=== PATIENT | female | born 1950 | race Caucasian/White ===

== ENCOUNTER 2021-02-26 08:56 | Day surgery (SDC) | payer BC, SELFPAY ==
[2021-02-19 11:38] VITALS: BMI 29.0
[2021-02-26 09:05] VITALS: BP 136/49; PULSE 74; RESP 17; TEMP 36.8; O2SAT 98
--- NOTE | 2021-02-26 09:19 | HO.ANESPROP2 ---
HPI - Anesthesia Eval Consult details Narrative: 70 yo female patient for EGD with balloon dilatation, Colonoscopy PMFSH Past Medical History Medical History (Updated 02/19/21 @ 11:44 by Marni Mendenhall RN) COVID-19 vaccine series completed Dysphagia GERD (gastroesophageal reflux disease) Hypothyroidism Pulmonary scarring Raynauds disease Scleroderma Surgical History Surgical History (Updated 02/19/21 @ 11:36 by Marni Mendenhall RN) History of laparoscopy History of total abdominal hysterectomy Hx of colonoscopy Hx of dilation and curettage Hx of esophagogastroduodenoscopy Hx of unilateral oophorectomy Social History Social History Household Members Other:: Daughter Are you a primary director of health care marketing to a significant other at home: No Do you presently have visiting nurse or other home services: No Patient Tobacco Use Status: Never used Tobacco Use of substances other than those prescribed or required for medical reasons: No Have you been hit, kicked, punched, or otherwise hurt by someone within the past year? If so, by whom?: No Are you DNR?: No Advance Directives: No Advance Directives Information Provided: No Advance Directives on File: No Recently lost weight without trying: No Eating poorly because of decreased appetite: No Nutrition Risks: No Nutritional Risk and Difficulty swallowing Patient : No Meds Allergies Allergy/AdvReac Type Severity Reaction Status Date / Time No Known Allergies Allergy Verified 02/19/21 11:36 Active Medications: Current Medications Sodium Biphosphate/Sodium Phosphate (Sodium Phosphate,Rooks-Dibasic 133 Ml Enema) 133 ml [place] ONCE PRN PRN Reason: Poor Colonoscopy Prep Results Home Medications Medication Instructions Recorded Confirmed Last Taken Type levothyroxine 100 mcg tablet 100 mcg PO DAILY 02/19/21 02/19/21 Unknown History omeprazole 20 mg capsule,delayed 20 mg PO DAILY 02/19/21 02/19/21 Unknown History release Exam Exam Date and Time: February 26, [id number] Height,Weight and Vital Signs: Height 5 ft 6 in Weight 81.647 kg
[2021-02-26] MEDS: Lactated Ringers 1,000 ML 100 ML IVCONT (09:32)
[2021-02-26 11:35] VITALS: BP 116/46; PULSE 72; RESP 12; TEMP 36.5; O2SAT 100
--- NOTE | 2021-02-26 11:39 | PM.OP ---
Brief Operative Note Date of Service: 02/26/21 Pre-op diagnosis: GERD, Dysphagia, Screening Post-op diagnosis: other (Esophageal stricture, Hiatal hernia, Colon polyps) Procedure: EGD with Balloon dilation, Colonoscopy to the cecum and TI with cold snare polypectomy of AC polyps and bx/removal of polyps Surgeon: Yan Nielson Anesthesia: MAC Was an Organ Pipe Voicer used for this Procedure?: No Estimated blood loss (mL): 4.0 Pathology: other (A. Polyp at 40cm B. Cecal polyp C. Ascending colon polyps) Condition: stable Disposition: PACU
[2021-02-26 11:50] VITALS: BP 108/54; PULSE 66; RESP 18; TEMP 36.2; O2SAT 100
--- NOTE | 2021-02-26 15:10 | OP_ITS ---
SURGEON: Yan Nielson MD INDICATIONS: The patient presents for evaluation of gastroesophageal reflux, dysphagia, personal history of colon polyps, and colorectal cancer screening. Full consent has been obtained from her for both procedures, including risks of bleeding and perforation. PREOPERATIVE DIAGNOSIS: POSTOPERATIVE DIAGNOSIS: PROCEDURE PERFORMED: Esophagogastroduodenoscopy with balloon dilation of esophageal stricture and colonoscopy to the cecum and terminal ileum with cold snare polypectomy and biopsy and removal of polyps. ESTIMATED BLOOD LOSS: COMPLICATIONS: ANESTHESIA: Monitored anesthesia care. ASSISTANTS: SPECIMENS: PREOPERATIVE DIAGNOSES: Dysphagia, gastroesophageal reflux, history of tubular adenoma of the colon, and colorectal cancer screening. POSTOPERATIVE DIAGNOSES: Dysphagia, gastroesophageal reflux, history of tubular adenoma of the colon, and colorectal cancer screening, hiatal hernia, esophageal stricture, colon polyps, diverticulosis and internal hemorrhoids. DESCRIPTION OF PROCEDURE: The patient was placed in the left lateral decubitus position. The Olympus video gastroscope was passed in the posterior oropharynx and upper esophagus under direct vision. The scope was passed slowly into the distal esophagus. The gastroesophageal junction was seen at 30 cm. There was no evidence of any esophagitis nor Carbajal's esophagus. There appeared to be a mild fibrotic stricture right at the gastroesophageal junction, but without any ulceration nor mass. The scope easily passed this into a moderate sized hiatal hernia. The hiatal hernia mucosa appeared normal. The scope was advanced to pylorus and duodenum was cannulated to the descending portion. The duodenum including the bulb appeared normal without mass or ulceration. The scope was withdrawn back into the stomach. The gastric antrum and body appeared normal with good peristalsis. The scope was retroflexed visualizing the proximal stomach carefully, which appeared normal, without any sign of mass or ulceration. The scope was straightened and withdrawn back in the esophagus. Given her intermittent dysphagia and the findings of the mild stricture, I did use a [employer] incremental balloon to dilate the stricture from 18 mm to 19 mm at the recommended pressures for between 30 and 60 seconds each. Post dilation, there was heme noted and disruption of the stricture. The esophageal mucosa otherwise appeared normal. The scope was withdrawn from the patient. She was turned around for the colonoscopy. The digital rectal exam revealed no abnormalities. The Olympus video pediatric colonoscope was entered into the rectum and advanced to the cecum. Once in the cecum, I did identify cecal pouch with appendiceal orifice and a normal-appearing ileocecal valve. The terminal ileum was cannulated and appeared normal. The scope was withdrawn back in the colon. There was transillumination of light deep in the right lower quadrant. In the cecum, was a 3 mm polyp, which was biopsied and completely removed with cold biopsy forceps. The scope was then slowly withdrawn assessing all mucosal surfaces carefully. Preparation was excellent. In the ascending colon, were several approximately 4 or 5 mm polyps in the same area, which were all removed by cold snare polypectomy and recovered by suction. There was no sign of any residual polyp nor significant bleeding. At 40 cm, was an approximately 3 or 4 mm polyp, which was biopsied and completely removed with cold biopsy forceps. I did not visualize any other polyps, colitis, nor angiodysplasia. There was a mild amount of sigmoid diverticulosis. In the rectum, scope was retroflexed visualizing internal hemorrhoids, but no other pathology. The rectal mucosa appeared normal. The scope was straightened out and withdrawn from the patient. She tolerated both procedures well and was returned to the recovery area in stable condition. IMPRESSION: 1. Mild distal esophageal stricture, status post balloon dilation. 2. Moderate-sized hiatal hernia. 3. Small colon polyps, status post cold snare polypectomy and biopsy and removal. 4. Diverticulosis. 5. Internal hemorrhoids. PLAN: The results of biopsy will be checked. I would recommend a repeat colonoscopy in 5 years. She will continue her daily Prilosec as she does report that is working well for her in regard to the reflux and helping to resolve her dysphagia as well. She was advised not to use any aspirin and NSAIDs for 1 week. If things are stable, she will see me on a p.r.n. basis. MD NIDIA Ness/ROSS / [id number]
== END 2021-02-26 12:30 | disposition home or self-care (01) ==
PROVIDERS: PCP Internal Medicine; Visit Provider Internal Medicine
PROC: (CPT 45385; principal; 2021-02-26 11:20)
PROC: 0DJD8ZZ Inspection of Lower Intestinal Tract, Via Natural or Artificial Opening Endoscopic (ICD-10-PCS; CPT 45378; 2021-02-26 11:20)
DX: Z12.11 Encounter for screening for malignant neoplasm of colon (principal); Z86.010 Personal history of colon polyps; D12.0 Benign neoplasm of cecum; D12.2 Benign neoplasm of ascending colon; K63.5 Polyp of colon; K57.30 Diverticulosis of large intestine without perforation or abscess without bleeding; K64.8 Other hemorrhoids; K22.2 Esophageal obstruction; R13.19 Other dysphagia; K21.9 Gastro-esophageal reflux disease without esophagitis; K44.9 Diaphragmatic hernia without obstruction or gangrene; I73.00 Raynaud's syndrome without gangrene; E03.9 Hypothyroidism, unspecified; Z79.899 Other long term (current) drug therapy
CPT/HCPCS: 45385; 45380; 43249; 88305; C1726

== ENCOUNTER 2021-03-30 10:42 | Outpatient (REF) | payer BC, SELFPAY ==
[2021-03-30 10:46] LABS: MANUAL DIFF FLAG NO
[2021-03-30 11:28] LABS: Appearance Urine CLEAR; Color Urine YELLOW; Glucose Urine UA NEG (NEG); Leukocyte Esterase Urine NEG (NEG); Nitrite Urine NEG (NEG); PH 5.5 (5.0-8.0); Specific Gravity - Urine 1.025 (1.005-1.025); Urine Blood NEG (NEG); Urine Ketones NEG (NEG); Urine Protein NEG (NEG-TRACE)
[2021-03-30 11:38] LABS: Basophils Percent Auto 0.4 % (0-2); Eosinophils Absolute Auto 0.2 X10*3/uL (0.0-0.4); Eosinophils Percent Auto 3.2 % (0-4); Hematocrit 40.7 % (37.0-47.0); Hemoglobin 12.9 g/dl (12.0-16.0); Imm Gran Abs Auto 0.01 X10*3/uL (0.00-0.03); Imm Gran Pct Auto 0.2 % (0.0-0.4); Lymphocytes Absolute Auto 2.1 X10*3/uL (1.2-4.9); Lymphocytes Percent Auto 40.2 % (20-40); Mean Corpuscular HGB Conc 31.7 g/dl (31.0-35.0); Mean Corpuscular Hemoglobin 28.7 pg (27.0-33.0); Mean Corpuscular Volume 90.4 fL (80.0-98.0); Mean Platelet Volume 9.9 fL (9.4-12.3); Monocytes Absolute Auto 0.5 X10*3/uL (0.1-1.2); Monocytes Percent Auto 9.8 % (2-11); Neutrophils Absolute Auto 2.4 x10*3/uL (2.0-8.3); Neutrophils Percent Auto 46.2 % (45-73); Platelet Count 278 X10*3/uL (160-400); White Blood Count 5.3 X10*3/uL (4.8-10.8)
[2021-03-30 12:18] LABS: Alanine Aminotransferase 11 U/L (0-31); Albumin Level 3.6 g/dL (3.5-5.0); Alkaline Phosphatase 82 U/L (39-117); Anion Gap 13 (12-20); Aspartate Amino Transferase 17 U/L (5-31); Bilirubin Total 0.4 mg/dL (0.0-1.0); Blood Urea Nitrogen 18 mg/dL (9-16); Calcium 9.2 mg/dL (8.4-10.2); Carbon Dioxide 26 mmol/L (22-29); Chloride 105 mmol/L (96-108); Cholesterol 226 mg/dL; Estimated Glomerular Filt Rate 56; Glucose Fasting 103 mg/dL (60-99); HDL Cholesterol 66 mg/dL; LDL Cholesterol Calculated 147 mg/dl; Potassium 4.8 mmol/L (3.3-5.1); Sodium 139 mmol/L (135-145); TSH reflex Free T4 0.95 uIU/mL (0.32-4.0); Total Protein 6.8 g/dL (6.5-8.0); Triglycerides 69 mg/dL; Vitamin D 25-OH Total 21.7 ng/mL (>30)
== END 2021-03-30 10:43 | disposition home or self-care (01) ==
LOC: HO.LNP 10:42
PROVIDERS: PCP Internal Medicine; Visit Provider Internal Medicine
DX: Z00.00 Encounter for general adult medical examination without abnormal findings (principal); M34.9 Systemic sclerosis, unspecified; E03.9 Hypothyroidism, unspecified; E55.9 Vitamin D deficiency, unspecified
CPT/HCPCS: 80053; 80061; 81003; 82306; 84443; 85025

== ENCOUNTER 2022-04-14 10:28 | Outpatient (REF) | payer MEDICARE, SELFPAY ==
[2022-04-14 10:32] LABS: MANUAL DIFF FLAG NO
[2022-04-14 10:44] LABS: Basophils Percent Auto 0.6 % (0-2); Eosinophils Absolute Auto 0.1 X10*3/uL (0.0-0.4); Eosinophils Percent Auto 2.4 % (0-4); Hematocrit 40.2 % (37.0-47.0); Hemoglobin 12.8 g/dl (12.0-16.0); Imm Gran Abs Auto 0.02 X10*3/uL (0.00-0.03); Imm Gran Pct Auto 0.4 % (0.0-0.4); Lymphocytes Percent Auto 36.8 % (20-40); Mean Corpuscular HGB Conc 31.8 g/dl (31.0-35.0); Mean Corpuscular Hemoglobin 28.9 pg (27.0-33.0); Mean Corpuscular Volume 90.7 fL (80.0-98.0); Mean Platelet Volume 10.2 fL (9.4-12.3); Monocytes Absolute Auto 0.6 X10*3/uL (0.1-1.2); Monocytes Percent Auto 11.3 % (2-11); Neutrophils Absolute Auto 2.6 x10*3/uL (2.0-8.3); Neutrophils Percent Auto 48.5 % (45-73); Platelet Count 308 X10*3/uL (160-400); Red Blood Count 4.43 X10*6/uL (4.20-5.50); Red Cell Distribution Width 15.4 % (11.0-16.0); White Blood Count 5.3 X10*3/uL (4.8-10.8)
[2022-04-14 10:59] LABS: Appearance Urine Cloudy; Color Urine Yellow; Glucose Urine UA Negative (Negative); Leukocyte Esterase Urine Small (1+) (Negative); Nitrite Urine Negative (Negative); PH 5.5 (5.0-9.0); Specific Gravity - Urine 1.025 (1.005-1.025); UMIC TRIGGER UA YES; Urine Blood Negative (Negative); Urine Ketones Trace mg/dL (Negative); Urine Protein Negative (Neg-Trace)
[2022-04-14 11:01] LABS: Alanine Aminotransferase 7 U/L (0-31); Albumin Level 3.6 g/dL (3.5-5.0); Alkaline Phosphatase 85 U/L (39-117); Anion Gap 10 (12-20); Aspartate Amino Transferase 18 U/L (5-31); Bilirubin Total 0.4 mg/dL (0.0-1.0); Blood Urea Nitrogen 13 mg/dL (9-16); Calcium 8.9 mg/dL (8.4-10.2); Carbon Dioxide 28 mmol/L (22-29); Chloride 106 mmol/L (96-108); Cholesterol 224 mg/dL; Estimated Glomerular Filt Rate > 60; Glucose Fasting 102 mg/dL (60-99); HDL Cholesterol 64 mg/dL; LDL Cholesterol Calculated 142 mg/dl; Potassium 4.3 mmol/L (3.3-5.1); Sodium 140 mmol/L (135-145); Total Protein 6.7 g/dL (6.5-8.0); Triglycerides 90 mg/dL
[2022-04-14 11:10] LABS: Bacteria Urine None Seen (None Seen); Hyaline Casts Urine 0-2 /LPF (0-2); RBC Urine 0-2 /HPF (0-2)
[2022-04-14 11:23] LABS: TSH reflex Free T4 0.35 uIU/mL (0.32-4.0); Vitamin D 25-OH Total 31.8 ng/mL (>30)
== END 2022-04-14 10:29 | disposition home or self-care (01) ==
LOC: HO.LNP 10:28
PROVIDERS: PCP Internal Medicine; Visit Provider Internal Medicine
DX: Z00.00 Encounter for general adult medical examination without abnormal findings (principal); E03.9 Hypothyroidism, unspecified; E55.9 Vitamin D deficiency, unspecified; M43.9 Deforming dorsopathy, unspecified
CPT/HCPCS: 80053; 80061; 81001; 82306; 84443; 85025

== ENCOUNTER 2022-10-24 15:57 | Outpatient (REF) | payer MEDICARE, SELFPAY ==
[2022-10-24 18:36] LABS: TSH reflex Free T4 0.23 uIU/mL (0.32-4.0)
[2022-10-24 19:07] LABS: Free T4 (Free Thyroxine) 1.31 ng/dL (0.71-1.85)
== END 2022-10-24 15:58 | disposition home or self-care (01) ==
LOC: HO.LNP 15:57
PROVIDERS: Visit Provider Internal Medicine
DX: E03.9 Hypothyroidism, unspecified (principal)
CPT/HCPCS: 84439; 84443

== ENCOUNTER 2022-10-27 09:33 | Outpatient (REF) | payer MEDICARE, SELFPAY ==
--- NOTE | ~2022-10-27 | MM_ITS ---
EXAMINATION: BONE DENSITOMETRY CLINICAL INDICATION: Other specified disorders of bone density and structure. COMPARISON: This is the patient's baseline examination. TECHNIQUE: Using a [employer] DXA System (software version: 13.1) manufactured by [employer], dual-energy x-ray absorptiometry was performed of the lumbar spine and left hip. The images are of good technical quality. Summary results are attached. FINDINGS: LEFT FEMUR, NECK: BMD 0.925 g/cm2, Z-score 0.4, T-score -0.8, normal. LEFT FEMUR, TOTAL: BMD 1.016 g/cm2, Z-score 1.0, T-score 0.1, normal. AP SPINE L1-L4: BMD 0.906 g/cm2, Z-score -1.5, T-score -2.3, osteopenia. IDENTIFIED RISK FACTORS: Menopause, bilateral oophorectomy, height loss, low calcium intake, history of fracture (adult). HISTORY OF FRACTURE: Other. MEDICATIONS: Vitamin D. MM/XR DEXA axial skeleton IMPRESSION: 1. DIAGNOSIS: Osteopenia based on the lowest T-score value of -2.3 in the lumbar spine applying World Health Organization criteria. 2. 10-YEAR FRACTURE RISK PREDICTION, FRAX: Major osteoporotic fracture (clinical spine, forearm, hip or shoulder) 13.3%. Hip fracture 1.3%. 3. Treatment Recommendations: NOF guidelines recommend consideration for treatment in postmenopausal women and men age 50 and older presenting with the following: -A hip or vertebral (clinical or morphometric) fracture. -T-score less than or equal to -2.5 at the femoral neck or spine after appropriate evaluation to exclude secondary causes. -Low bone mass at the hip or spine and a 10-year fracture probability by FRAX of greater than or equal to 3% for hip fracture or greater than or equal to 20% for major osteoporotic fracture based on the [place] adapted WHO algorithm. 4. Other Recommendations: All treatment decisions require clinical judgment and consideration of individual patient factors, including patient preferences, comorbidities, previous drug use, risk factors not captured in the FRAX model (e.g. frailty, falls, vitamin D deficiency, increased bone turnover, interval significant decline in bone density) and possible under or overestimation of fracture risk by FRAX. Additional medical evaluation for secondary cause of low bone mineral density may be appropriate. FUTURE SCAN RECOMMENDATION: People with diagnosed cases of osteoporosis or at high risk for fracture should have regular bone mineral density tests. For patients eligible for Medicare, routine testing is allowed once every 2 years. The testing frequency can be increased to one year for patients who have rapidly progressing disease, those who are receiving or discontinuing medical therapy to restore bone mass, or have additional risk factors.
== END 2022-10-27 09:34 | disposition home or self-care (01) ==
LOC: HO.MAMMO 09:33
PROVIDERS: PCP Internal Medicine; Visit Provider Internal Medicine
DX: Z13.820 Encounter for screening for osteoporosis (principal); Z78.0 Asymptomatic menopausal state; M85.80 Other specified disorders of bone density and structure, unspecified site
CPT/HCPCS: 77080

== ENCOUNTER 2023-01-20 10:56 | Outpatient (REF) | payer MEDICARE, SELFPAY | END 2023-01-20 10:57 | disposition home or self-care (01) | LOC: HO.LNP 10:56 | PROVIDERS: Visit Provider Internal Medicine | DX: E03.9 Hypothyroidism, unspecified (principal) | CPT/HCPCS: 84443 ==

== ENCOUNTER 2023-04-20 11:41 | Outpatient (REF) | payer MEDICARE, SELFPAY | END 2023-04-20 11:42 | disposition home or self-care (01) | LOC: HO.LNP 11:41 | PROVIDERS: Visit Provider Internal Medicine | DX: Z00.00 Encounter for general adult medical examination without abnormal findings (principal); E03.9 Hypothyroidism, unspecified; E55.9 Vitamin D deficiency, unspecified | CPT/HCPCS: 80053; 80061; 81001; 82306; 84443; 85025; 87086 ==

== ENCOUNTER 2023-04-27 15:48 | Outpatient (REF) | payer MEDICARE, SELFPAY ==
[2023-04-27 16:00] LABS: Appearance Urine Clear; Color Urine Yellow; Glucose Urine UA Negative (Negative); Leukocyte Esterase Urine Negative (Negative); Nitrite Urine Negative (Negative); PH 5.5 (5.0-9.0); Specific Gravity - Urine 1.025 (1.005-1.025); Urine Blood Negative (Negative); Urine Ketones Negative (Negative); Urine Protein Negative (Neg-Trace)
[2023-04-27 16:07] LABS: Bacteria Urine None Seen (None Seen); Hyaline Casts Urine 0-2 /LPF (0-2); RBC Urine 0-2 /HPF (0-2); Squamous Epithelial Cell Urine 0-2 /HPF (0-2); WBC Urine 0-5 /HPF (0-5)
== END 2023-04-27 15:49 | disposition home or self-care (01) ==
LOC: HO.LNP 15:48
PROVIDERS: Visit Provider Internal Medicine
DX: R31.29 Other microscopic hematuria (principal)
CPT/HCPCS: 81001

== ENCOUNTER 2024-04-22 10:39 | Outpatient (REF) | payer MEDICARE, SELFPAY ==
[2024-04-22 10:44] LABS: MANUAL DIFF FLAG NO
--- OUTSIDE RECORDS SUMMARY | 2024-04-22 11:53 | XMS_ITS ---
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
--- OUTSIDE RECORDS SUMMARY | 2024-04-22 11:53 | XMS_ITS ---
Author Organization Jason Jenkins MD Address [address] [place] [phone] Care Team Providers Care Tire Installer Name Role Phone Jason Jenkins Primary Care Provider [phone] REASON FOR VISIT HDF IMMUNIZATIONS Vaccine Route Administration Date Status Comme nts Influenza High Dose IM Intramuscular 02/08/2024 Administer ed Encounters Encounter Location Date Provider Diagnosis Jason Jenkins MD [address] [place] [phone] 02/08/2024 Jason Jenkins Encounter for administration of vaccine Z23 ASSESSMENTS Encounter Date Diagnosis Assessment Notes Treatment Notes Treatment Clinical Notes 02/08/2024 Encounter for administration of vaccine (ICD-10 - Z23) PLAN OF TREATMENT Next Appt Details Provider Name:Jason benson, 04/29/2024 02:30:00 PM, [address], [address] [place] [address], [phone],
--- OUTSIDE RECORDS SUMMARY | 2024-04-22 11:53 | XMS_ITS | Patient Health Record ---
Author Organization Jason Jenkins MD Address [address] [place], [place] [id number] Care Team Providers Care Manager Of Manufacturing Name Role Phone Jason Jenkins Primary Care Provider ALLERGIES No Known Allergies RESULTS Component Value Reference Range Notes Urinalysis and Microscopic Reviewed date:04/28/2023 08:41:33 AM Interpretation: Performing Lab:[facility], [address] [place] [id number] Notes/Report: Color Urine Yellow Appearance Urine Clear PH 5.5 5.0-9.0 Glucose Urine UA Negative Negative mg/dL Urine Blood Negative Negative Specific [place] - Urine 1.025 1.005-1.025 Urine Protein Negative Neg-Trace mg/dL Urine Ketones Negative Negative mg/dL Nitrite Urine Negative Negative Leukocyte Esterase Urine Negative Negative RBC Urine 0-2 0-2 /HPF WBC Urine 0-5 0-5 /HPF Squamous Epithelial Cell Urine 0-2 0-2 /HPF Bacteria Urine None Seen None Seen Hyaline Casts Urine 0-2 0-2 /LPF MAMMOGRAM DIGITAL BILATERAL SCREEN Reviewed date:01/11/2024 11:53:37 AM Interpretation:Negative Performing Lab: Notes/Report: Negative REASON FOR REFERRAL No Information MEDICATIONS Medication SIG (Take, Route, Frequency, Duration) Notes Start Date End Date Status Omeprazole 20 MG 1 capsule Orally Onc e a day for 90 days Active Levothyroxine Sodium 88 MCG TAKE 1 TABLET BY MOUTH EVERY DAY IN THE MORNING ON EMPTY STOMACH for 90 Active predniSONE 10 MG 1 tablet with food o r milk Orally 4 tabs for 3 days,3tabs for 3 days, 2 tabs for 3 days, and 1 tab for 3 days for 14 days 01/16/2024 Active Vitamin D3 25 MCG (1000 UT) 1 tablet Orally Once a day 04/19/2021 Not-Taking Vitamin B12 1000 MCG 1 tablet Orally Onc e a day for 30 day(s) Not-Taking ProAir RespiClick 108 (90 Base) MCG/ACT 1 puff as needed Inhalation every 4 hrs 01/04/2016 Not-[place] g Diprolene AF 0.05 % 1 application to affected area Externally Once a day for 30 days 05/31/2012 Not-Taking IMMUNIZATIONS Vaccine Route Administration Date Status Comme nts Flu Vaccine IM Intramuscular 01/11/2011 Administered Flu Vaccine IM Intramuscular 04/26/2012 Administered TDaP IM Intramuscular 09/17/2012 Administered Shingles IM Intramuscular 09/29/2014 Administered Fluarix Quadrivalent IM Intramuscular 01/12/2015 Administe red Fluarix Quadrivalent IM Intramuscular 02/23/2016 Administe red PPSV23 (Pnemovax) IM Intramuscular 04/25/2016 Administered Fluarix Quadrivalent IM Intramuscular 02/20/2017 Administe red Influenza High Dose IM Intramuscular 01/25/2018 Administer ed Shingrix IM Intramuscular 01/30/2018 Administered Shingrix IM Intramuscular 04/30/2018 Administered Prevnar 13 IM Intramuscular 05/14/2018 Administered Influenza High Dose IM Intramuscular 03/11/2019 Administer ed Fluarix Quadrivalent IM Intramuscular 01/16/2020 Administe red Covid Vaccine Unknown 06/17/2020 Administered Moderna C VS Covid Vaccine Unknown 07/15/2020 Administered Moderna c vs Influenza High Dose Unknown 01/25/2021 Administered SARS-COV-2 Moderna Unknown 02/11/2021 Administered PPSV23 (Pnemovax) IM Intramuscular 11/01/2021 Administered Influenza High Dose IM Intramuscular 02/08/2024 Administer ed SOCIAL HISTORY Tobacco Use: Social History Observation Description Date Details (start date - stop date) Never Smoker NA - NA Sex Assigned At : Social History Observation Description Sex Assigned At Unknown Tobacco Use/Smoking Question Answer Notes Patient is a nonsmoker Additional Findings: Tobacco Non-User Cu rrent non-smoker, currently using no form of tobacco Alcohol Screen Question Answer Notes Did you have a drink containing alcohol in the p ast year? No Points 0 Interpretation Negative PROBLEMS Problem Type ICD Code Onset Dates Problem Status W/U Status Risk SNOMED Code Notes Problem Reflux esophagitis (K21.00) Active confirmed 617951965 Problem Vitamin D deficiency (E55.9) Active confirmed Vitamin D deficiency (82104077) Problem Acquired hypothyroidism (E03.9) Active confirmed 503118365 Problem Non morbid obesity due to excess calories (E66.09) Active confirmed 452709445 Problem History of colonic polyps (Z86.010) Active confirmed 330992566 Problem Scleroderma (M34.9) Active confirmed Scleroderma (272688931) Problem Systemic scleroses (M34.9) Active confirmed 63030904 Problem Body mass index (BMI) of 33.0-33.9 in adult (Z68.33) Active confirmed 038295844 Problem Osteopenia determined by x-ray (M85.80) Active confirmed 413445512 VITAL SIGNS Blood pressure diastolic 56 mm Hg 01/16/2024 thai ght is down 9 pounds since 10-31-23 Height 66 in 01/16/2024 weight is down 9 pounds since 10-31-23 Blood pressure systolic 110 mm Hg 01/16/2024 weig ht is down 9 pounds since 10-31-23 Weight 191 lbs 01/16/2024 weight is down 9 pounds since 10-31-23 BMI 30.82 kg/m2 01/16/2024 weight is down 9 pounds since 10-31-23 Encounters Encounter Location Date Provider Diagnosis Jason Jenkins MD [address] [place] [id number] 04/27/2023 Jason Jenkins Microscopic hematuri a R31.29 ; Annual physical exam Z00.00 ; Reflux esophagitis K21.00 ; Acquired hypothyroidism E03.9 and Depression screening Z13.31 Jason Jenkins MD [address] [place] [address] [address] [place] [id number] 02/08/2024 Jason Jenkins MD [address] [place] [id number] 04/22/2024 Jason Jenkins Blood tests for routine general physical examination Z00.00 ; Acquired hypothyroidism E03.9 and Vitamin D deficiency E55.9 Jason Jenkins MD [address] [place] [id number] 02/08/2024 Jason Jenkins Encounter for administration of vaccine Z23 Jason Jenkins MD [address] [place] [id number] 10/31/2023 Jason Jenkins Osteopenia determine d by x-ray M85.80 ; Scleroderma M34.9 ; Abnormal plasma protein test R77.9 ; Weight loss R63.4 and Acquired hypothyroidism E03.9 Jason Jenkins MD [address] [place] [id number] 01/16/2024 Jason Jenkins COVID-19 U07.1 and Dysfunction of left eustachian tube H69.92 ASSESSMENTS Encounter Date Diagnosis Assessment Notes Treatment Notes Treatment Clinical Notes 04/27/2023 Annual physical exam (ICD-10 - Z00.00) labs reviewed nd discussed with patient 04/27/2023 Microscopic hematuria (ICD-10 - R31.29) will continue to monitor 04/22/2024 Blood tests for routine general physical examination (ICD-10 - Z00.00) 02/08/2024 Encounter for administration of vaccine (ICD-10 - Z23) 10/31/2023 Scleroderma (ICD-10 - M34.9) not having any problems 10/31/2023 Osteopenia determined by x-ray (ICD-10 - M85.80) followed by endocrine 01/16/2024 COVID-19 (ICD-10 - U07.1) 01/16/2024 Dysfunction of left eustachian tube (ICD-10 - H69.92) patient verbalized understanding of medication and directions for use. 04/27/2023 Reflux esophagitis (ICD-10 - K21.00) stable, will continue current regiment 04/22/2024 Acquired hypothyroidism (ICD-10 - E03.9) 10/31/2023 Abnormal plasma protein test (ICD-10 - R77.9) need notes from dr herrera at [facility]/ request will be sent for records 04/27/2023 Acquired hypothyroidism (ICD-10 - E03.9) stable, will continue current regiment 04/22/2024 Vitamin D deficiency (ICD-10 - E55.9) 10/31/2023 Weight loss (ICD-10 - R63.4) has lost 13 pounds since august on ww. 04/27/2023 Depression screening (ICD-10 - Z13.31) negative screen 10/31/2023 Acquired hypothyroidism (ICD-10 - E03.9) stable, will continue current regiment PLAN OF TREATMENT Pending Test Test Name Order Date Electrocardiogram (EKG) 07/02/2013 Electrocardiogram (EKG) 02/23/2017 MAMMOGRAM DIGITAL BILATERAL SCREEN 03/19 US LEG LT VENOUS DOPPLER 11/01/2021 PFT 02/22/2016 Complete Blood Count Auto Diff 5 Comprehensive [place]. Panel Fast 5 Lipid Panel 04/22/2024 Vitamin D 25-OH Total 04/22/2024 MM tomosynthesis screening BI 09/22/2020 XR DEXA axial skeleton 09/22/2020 XR DEXA axial skeleton 11/17/2020 UA ClnCatch+Micro w/rflx Cult 04/22/2024 Future Test Test Name Order Date BONE DENSITY DEXA 10/03/2019 Next Appt Details Provider Name:Jason Saravia ier, 04/29/2024 02:30:00 PM, [address] [place] [address], [address], [place], [place], [id number], Insurance Providers Payer Name Payer Address Payer Phone Subscriber Number Group Number Insured Name Patient Relationship to Insured Coverage Start Date Coverage End Date [employer] [address] [place], [place] [id number] Loni Diamond Self - patient is the insured MEDICAL (GENERAL) HISTORY Medical History History ICD Code colonoscopy 2009 due in 5 ye ars; colonoscopy 08/14/15 w/Dr. Nielson - repeat 5 years: colonoscopy 03/07, repeat 5 years ( 2025) UIP IS USUAL INTERSTITIAL PNEUMONIA
--- OUTSIDE RECORDS SUMMARY | 2024-04-22 11:53 | XMS_ITS | Patient Health Record ---
Author Organization [facility] Address [address] [place] [id number] Care Team Providers Care Sports Analyst Name Role Phone Jason Jenkins MD Primary Care Provider Yan Woodard Unavailable [phone] ALLERGIES No Known Allergies REASON FOR REFERRAL No Information MEDICATIONS Medication SIG (Take, Route, Frequency, Duration) Notes Start Date End Date Status PriLOSEC 20 MG 1 capsule Orally Onc e a day PRN Active Levothyroxine Sodium 100 MCG 1 capsule O rally Once a day Active IMMUNIZATIONS Vaccine Route Administration Date Status Comme nts Influenza Unknown 01/16/2020 Administered SOCIAL HISTORY Sex Assigned At : Social History Observation Description Sex Assigned At Unknown PROBLEMS Problem Type ICD Code Onset Dates Problem Status W/U Status Risk SNOMED Code Notes Problem Gastroesophageal reflux disease without esophagitis (K21.9) Active confirmed 104361598 Problem History of adenomatous polyp of colon (Z86.010) Active confirmed 238554329 Problem Encounter for screening for malignant neoplasm of colon (Z12.11) Active confirmed 678571334 Problem Personal history of colonic polyps (Z86.010) Active confirmed History of poly p of colon (situation) (469058130) Problem Gastroesophageal reflux disease with esophagitis without hemorrhage (K21.00) Active confirmed 525196579 Problem Esophageal dysphagia (R13.19) Active confirmed 06580769 Problem Diverticulosis of colon (K57.30) Active confirmed Diverticulosi s of colon (133285667) Problem Esophageal stricture (K22.2) Active confirmed Esophageal stricture (60069319) Problem Gastroesophageal reflux disease (K21.9) Active confirmed Gastroesophagea l reflux disease (828634960) PLAN OF TREATMENT Future Test Test Name Order Date COLONOSCOPY 05/27/2015 UPPER GI ENDOSCOPY [place] DILATION OF ESOPH 01/21/2021 COLONOSCOPY 01/21/2021 Insurance Providers Payer Name Payer Address Payer Phone Subscriber Number Group Number Insured Name Patient Relationship to Insured Coverage Start Date Coverage End Date [facility] [address] [place], [place] [id number] PALAK HUNTER Self - patient is the insured MEDICAL (GENERAL) HISTORY Medical History History ICD Code GERD-reflux esophagitis--upp er endoscopy in 2009 revealed a moderate size hiatal hernia and some erosive esophagitis--biopsies were negative for Carbajal's esophagus Tubular adenomas removed in 2003 and 2009--also noted was some diverticulosis and internal hemorrhoids Scleroderma diagnosed in 1985--Raynaud's Denies NH,DM,CVA,Lung disease,renal dise ase Hypothyroidism Colonoscopy 07/2015 was negative Surgical History Surgery Date(Month/Year) Removal of one ovary---? right [facility] 2018
[2024-04-22 12:04] LABS: Basophils Percent Auto 0.6 % (0-2); Eosinophils Absolute Auto 0.1 X10*3/uL (0.0-0.4); Eosinophils Percent Auto 1.9 % (0-4); Hematocrit 39.5 % (37.0-47.0); Hemoglobin 12.3 g/dl (12.0-16.0); Imm Gran Abs Auto 0.01 X10*3/uL (0.00-0.03); Imm Gran Pct Auto 0.2 % (0.0-0.4); Lymphocytes Absolute Auto 2.4 X10*3/uL (1.2-4.9); Lymphocytes Percent Auto 39.1 % (20-40); Mean Corpuscular HGB Conc 31.1 g/dl (31.0-35.0); Mean Corpuscular Hemoglobin 27.2 pg (27.0-33.0); Mean Corpuscular Volume 87.4 fL (80.0-98.0); Mean Platelet Volume 10.1 fL (9.4-12.3); Monocytes Absolute Auto 0.6 X10*3/uL (0.1-1.2); Monocytes Percent Auto 9.4 % (2-11); Neutrophils Percent Auto 48.8 % (45-73); Platelet Count 334 X10*3/uL (160-400); Red Blood Count 4.52 X10*6/uL (4.20-5.50); Red Cell Distribution Width 15.4 % (11.0-16.0); White Blood Count 6.2 X10*3/uL (4.8-10.8)
[2024-04-22 12:05] LABS: Appearance Urine Clear; Color Urine Yellow; Glucose Urine UA Negative (Negative); Leukocyte Esterase Urine Moderate (2+) (Negative); Nitrite Urine Negative (Negative); PH 5.5 (5.0-9.0); Specific Gravity - Urine 1.025 (1.005-1.025); UMIC TRIGGER UACC YES; Urine Blood Negative (Negative); Urine Ketones Negative (Negative); Urine Protein Trace mg/dL (Neg-Trace)
[2024-04-22 12:11] LABS: Bacteria Urine Trace (None Seen); Hyaline Casts Urine 0-2 /LPF (0-2); RBC Urine 0-2 /HPF (0-2); UACC Culture Trigger YES; WBC Urine >50 /HPF (0-5)
[2024-04-22 13:26] LABS: Alanine Aminotransferase 8 U/L (0-31); Albumin Level 3.5 g/dL (3.5-5.0); Alkaline Phosphatase 86 U/L (39-117); Anion Gap 9 (12-20); Aspartate Amino Transferase 27 U/L (5-31); Bilirubin Total 0.4 mg/dL (0.0-1.0); Blood Urea Nitrogen 18 mg/dL (9-16); Calcium 9.1 mg/dL (8.4-10.2); Carbon Dioxide 27 mmol/L (22-29); Chloride 109 mmol/L (96-108); Cholesterol 213 mg/dL (<200); Estimated Glomerular Filt Rate 56; Glucose Fasting 95 mg/dL (60-99); HDL Cholesterol 57 mg/dL (>40); LDL Cholesterol Calculated 134 mg/dL (<100); Potassium 4.2 mmol/L (3.3-5.1); Sodium 141 mmol/L (135-145); Total Protein 7.1 g/dL (6.5-8.0); Triglycerides 114 mg/dL (<150); Vitamin D 25-OH Total 32.4 ng/mL (>30)
== END 2024-04-22 10:40 | disposition home or self-care (01) ==
LOC: HO.LNP 10:39
PROVIDERS: Visit Provider Internal Medicine
DX: Z00.00 Encounter for general adult medical examination without abnormal findings (principal); E03.9 Hypothyroidism, unspecified; E55.9 Vitamin D deficiency, unspecified
CPT/HCPCS: 80053; 80061; 81001; 82306; 85025; 87086; 87147

== ENCOUNTER 2024-12-26 09:59 | Outpatient (REF) | payer MEDICARE, SELFPAY ==
--- OUTSIDE RECORDS SUMMARY | 2024-02-08 12:15 | XMS_ITS ---
Author Organization Jason Jenkins MD Address [address] [place] [phone] Care Team Providers Care Scrap Drop Crane Operator Name Role Phone Jason Jenkins Primary Care Provider [phone] REASON FOR VISIT 2 week Encounters Encounter Location Date Provider Diagnosis Jason Jenkins MD [facility] [address] [place] [phone] 02/08/2024 Jason Jenkins Plan Of Treatment Next Appt Details Provider Name:Jason benson, 04/25/2025 07:45:00 AM, [address] [place] [address], [address] [place] [address], [phone], Provider Name:Jason benson, 05/02/2025 01:00:00 PM, [address] [place] [address], [address] [place] [address], [id number], Progress Notes * Loni DIAMOND WDOB: 0 (74 yo F)Acc No.[id number]:02/08/2024 Patient: Loni RAMOS Provider: Inna Jenkins MD :1950 A ge:73 Y S ex:Female Date:02/08/2024 Address:[address] [place], [place] [phone] Subjective: * Chief Complaints: * 1 . 2 week. * Medical History: Objective: * Vitals: Assessment: Plan: * Treatment: * * The named appointment provid er may or may not be the originator of this progress note, and it is not deemed complete until electronically signed by the appointment provider. Sign off status: Pending * Provider: Inna Jenkins MD Date: Generated for Hesham neff/Jose G/Nitishitting on: 0 12/26/2024 12:00 PM EDT
--- OUTSIDE RECORDS SUMMARY | 2024-04-22 04:00 | XMS_ITS ---
Author Organization Jason Jenkins MD Address [address] [place], [place] [id number] Care Team Providers Care Die Casting Machine Maintainer Name Role Phone Jason Jenkins Primary Care Provider Results Component Value Reference Range Notes Complete Blood Count Auto Di ff Reviewed date:04/22/2024 05:46:54 PM Interpretation: Performing Lab:[facility], [address] [place] [phone] Notes/Report: White Blood Count 6.2 4.8-10.8 X10*3/uL Red Blood Count 4.52 4.20-5.50 X10*6/uL Hemoglobin 12.3 12.0-16.0 g/dl Hematocrit 39.5 37.0-47.0 % Mean Corpuscular Volume 87.4 80.0-98.0 fL Mean Corpuscular Hemoglobin 27.2 27.0-33.0 pg Mean Corpuscular HGB Conc 31.1 31.0-35.0 g/dl Red Cell Distribution Width 15.4 11.0-16.0 % Platelet Count 334 160-400 X10*3/uL Mean Platelet Volume 10.1 9.4-12.3 fL Neutrophils Percent Auto 48.8 45-73 % Imm Gran Pct Auto 0.2 0.0-0.4 % Lymphocytes Percent Auto 39.1 20-40 % Monocytes Percent Auto 9.4 2-11 % Eosinophils Percent Auto 1.9 0-4 % Basophils Percent Auto 0.6 0-2 % NRBC Pct Auto 0.0 0.0-0.2 /100WBC Neutrophils Absolute Auto 3.0 2.0-8.3 x10*3/u L Imm Gran Abs Auto 0.01 0.00-0.03 X10*3/uL Lymphocytes Absolute Auto 2.4 1.2-4.9 X10*3/u L Monocytes Absolute Auto 0.6 0.1-1.2 X10*3/uL Eosinophils Absolute Auto 0.1 0.0-0.4 X10*3/u L Basophils Absolute Auto 0.0 0.0-0.2 X10*3/uL NRBC Abs Auto 0.000 0.0-0.012 X10*3/uL Comprehensive [place]. Panel Fa st Reviewed date:04/22/2024 05:56:26 PM Interpretation: Performing Lab:[facility], [address] [place] [phone] Notes/Report: Sodium 141 135-145 mmol/L Potassium 4.2 3.3-5.1 mmol/L Chloride 109 96-108 mmol/L Carbon Dioxide 27 22-29 mmol/L Anion Gap 9 12-20 Blood Urea Nitrogen 18 9-16 mg/dL Creatinine 0.97 0.5-1.4 mg/dL Estimated Glomerular Filt Rate 56 Chronic Kidney Disease: Estimated GFR < 60 mL/min/1.73m2 Severe Kidney Disease: Estimated GFR < 15 mL/min/1.73m2 Glucose Fasting 95 60-99 mg/dL Calcium 9.1 8.4-10.2 mg/dL Bilirubin Total 0.4 0.0-1.0 mg/dL Aspartate Amino Transferase 27 5-31 U/L Alanine Aminotransferase 8 0-31 U/L Total Protein 7.1 6.5-8.0 g/dL Albumin Level 3.5 3.5-5.0 g/dL Alkaline Phosphatase 86 39-117 U/L Lipid Panel Reviewed date:04/22/2024 05:45:00 PM Interpretation: Performing Lab:[facility], [address] [place] [phone] Notes/Report: Triglycerides 114 <150 mg/dL Desirable Triglyceride: less than 150 mg/dL Borderline High Triglyceride 150-199 mg/dL High Triglyceride: 200-499 mg/dL Very High Triglyceride: greater than or equal to 5OO mg/dL Cholesterol 213 <200 mg/dL Desirable Cholesterol: less than 200 mg/dL Borderline High Cholesterol: 200-239 mg/dL High Cholesterol: greater than 239 mg/dL LDL Cholesterol Calculated 134 <100 mg/dL Desirable LDL: less than 100 mg/dL Near Optimal/Above Optimal LDL: 110-129 mg/dL Borderline High LDL: 130-159 mg/dL High LDL: 160-189 mg/dL Very High LDL: greater than or equal to 190 mg/dL HDL Cholesterol 57 >40 mg/dL Desirable HDL: greater than 40 mg/dL Note: This HDL assay may give artificially low results in patients with liver disease. Vitamin D 25-OH Total Reviewed date:04/22/2024 01:33:15 PM Interpretation: Performing Lab:[facility], [address] [place] [phone] Notes/Report: Vitamin D 25-OH Total 32.4 >30 ng/mL Health Based Reference Values* < 20 ng/mL Deficient 20-30 ng/mL Insufficient > 30 ng/mL Sufficient *Ave MADRID. N Engl J Med. 2007;357:266-280 Care must be taken in interpreting Vitamin D results from different laboratories and methodologies. Published data demonstrated that results from patients undergoing hemodialysis may show a negative bias when tested with various automated 25-OH vitamin D assays when compared to LC-MS/MS. When testing samples from patients whose predominant form of Vitamin D is Vitamin D2, such as patients receiving Vitamin D2 supplementation, results that are subtherapeutic should be confirmed with another method such as LC-MS/MS. UA ClnCatch+Micro w/rflx Cul t Reviewed date:04/22/2024 05:59:18 PM Interpretation: Performing Lab:[facility], [address] [place] [phone] Notes/Report: Urine, Clean Catch Color Urine Yellow Appearance Urine Clear PH 5.5 5.0-9.0 Glucose Urine UA Negative Negative mg/dL Urine Blood Negative Negative Specific [place] - Urine 1.025 1.005-1.025 Urine Protein Trace Neg-Trace mg/dL Urine Ketones Negative Negative mg/dL Nitrite Urine Negative Negative Leukocyte Esterase Urine Moderate (2+) Negative RBC Urine 0-2 0-2 /HPF WBC Urine >50 0-5 /HPF Squamous Epithelial Cell Urine 6-10 0-2 /HPF Bacteria Urine Trace None Seen Hyaline Casts Urine 0-2 0-2 /LPF REASON FOR VISIT FASTING LABS Encounters Encounter Location Date Provider Diagnosis Jason Jenkins MD [address] [place] [address] [place] [phone] 04/22/2024 Jason Jenkins Blood tests for routine general physical examination Z00.00 ; Acquired hypothyroidism E03.9 and Vitamin D deficiency E55.9 Assessments Encounter Date Diagnosis (ICD Code) Assessment Notes Treatment Notes Treatment Clinical Notes Section Notes 04/22/2024 Blood tests for routine general physical examination (ICD-10 - Z00.00) 04/22/2024 Acquired hypothyroidism (ICD-10 - E03.9) 04/22/2024 Vitamin D deficiency (ICD-10 - E55.9) Plan Of Treatment Next Appt Details Provider Name:Jason Saravia ier, 04/25/2025 07:45:00 AM, [address] [place] [address], Suite [facility], [place], [place], [phone], Provider Name:Jason Saravia ier, 05/02/2025 01:00:00 PM, [address] [place] [address], Suite [facility], [place], [place], [phone], Progress Notes * Loni DIAMOND WDOB: 0 (74 yo F)Acc No.[id number]:04/22/2024 Progress Note Patient: Loni RAMOS Provider: Inna Jenkins MD :1950 A ge:74 Y S ex:Female Date:04/22/2024 Address:[address] [place] [address] Subjective: * Chief Complaints: * 1 . FASTING LABS. * Medical History: Objective: * Vitals: Assessment: * Assessment: 1. B lood tests for routine general physical examination - Z00.00 (Primary) 2 .?Acquired hypothyroidism - E03.9 3 . V itamin D deficiency - E55.9 ? Plan: * Treatment: 2. A cquired hypothyroidism L AB: Complete Blood Count Auto Diff (Collection Date & Time - 04/22/2024 08:30 AM) L AB: Comprehensive [place]. Panel Fast (Collection Date & Time - 04/22/2024 08:30 AM) L AB: Lipid Panel (Collection Date & Time - 04/22/2024 08:30 AM) L AB: Vitamin D 25-OH Total (Collection Date & Time - 04/22/2024 08:30 AM) L AB: UA ClnCatch+Micro w/rflx Cult (Collection Date & Time - 04/22/2024 08:30 AM) 3. V itamin D deficiency L AB: Complete Blood Count Auto Diff (Collection Date & Time - 04/22/2024 08:30 AM) L AB: Comprehensive [place]. Panel Fast (Collection Date & Time - 04/22/2024 08:30 AM) L AB: Lipid Panel (Collection Date & Time - 04/22/2024 08:30 AM) L AB: Vitamin D 25-OH Total (Collection Date & Time - 04/22/2024 08:30 AM) L AB: UA ClnCatch+Micro w/rflx Cult (Collection Date & Time - 04/22/2024 08:30 AM) * Procedure Codes: 3 6415 VENIPUNCT, ROUTINE* * * The named appointment provid er may or may not be the originator of this progress note, and it is not deemed complete until electronically signed by the appointment provider. Sign off status: Pending * Provider: Inna Jenkins MD Date: 0 04/22/2024 Generated for Hesham neff/Jose G/Nitishitting on: 0 12/26/2024 12:00 PM EDT
--- OUTSIDE RECORDS SUMMARY | 2024-04-29 10:30 | XMS_ITS ---
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 Left patient a voice message regarding test being booked., order for test faxed to [facility].Tyler Annette 05/30/2024 12:00:11 PM > spoke with patient her PFT s booked for 06-18-2024 at 11:30am ( They're office booked it ), Lindsey Scott 06/25/2024 11:30:16 AM >spoke with office her test that was done on 06-19-2023 was a screening spirometry, needs to have the PFT test done with or without ABG's., Once done they can go ahead and book her appt ., Lindsey Scott 08/09/2024 11:24:48 AM > spoke with office her PFT test is booked for October 31 . Her appt is 11-15-2023 at 3:20pm With Dr. Kimberlee Rodriguez [address] [facility][1] , 2[address] floor [address], Lindsey Scott 08/12/2024 11:58:32 AM >info mailed to patient Referral Priority Routine Referral Appointment Date 11/14/2024 Reason osteopenia determine d by x-ray Diagnosis 1 Osteopenia determine d by x-ray (M85.80) Referral Organization Jason Jenkins MD Referring Provider First Name Jason Referring Provider Last Name Alice Referring Provider Speciality Internal M edicine Referred Provider JOHN FOWLER Referred Provider Specialty Rheumatology General Notes Lindsey Scott 0 05/03/2024 03:16:44 PM >info faxed, Lindsey Scott 05/30/2024 12:16:18 PM > appt is booked to 11-20-24 at 3:40pm, Lindsey Scott 06/04/2024 11:10:12 AM > referral info mailed to patient Referral Priority Routine Referral Appointment Date 11/20/2024 REASON FOR VISIT COMP EXAM Medications Medication SIG (Take, Route, Frequency, Duration) Notes Start Date End Date Status Vitamin D3 25 MCG (1000 UT) 1 tablet Orally Once a day 04/19/2021 Not-Taking Levothyroxine Sodium 88 MCG TAKE 1 TABLET BY MOUTH EVERY DAY IN THE MORNING ON EMPTY STOMACH Active Vitamin B12 1000 MCG 1 tablet Orally Onc e a day for 30 day(s) Not-Taking Omeprazole 20 MG TAKE 1 CAPSULE BY MO UT EVERY DAY FOR 90 DAYS Active Diprolene AF 0.05 % 1 application to affected area Externally Once a day for 30 days 05/31/2012 Not-Taking ProAir RespiClick 108 (90 Base) MCG/ACT 1 puff as needed Inhalation every 4 hrs 01/04/2016 Not-Magnolia botello Social History Tobacco Use: Social History Observation Description Date Details (start date - stop date) Never Smoker NA - NA Tobacco Use/Smoking Question Answer Notes Patient is a nonsmoker Additional Findings: Tobacco Non-User Cu rrent non-smoker, currently using no form of tobacco Alcohol Screen Question Answer Notes Did you have a drink containing alcohol in the p ast year? No Points 0 Interpretation Negative Vital Signs Blood pressure systolic 122 mm Hg 04/29/19 25 Blood pressure diastolic 58 mm Hg 025 Height 66 in 04/29/2024 Weight 193 lbs 04/29/2024 BMI 31.15 kg/m2 04/29/2024 weight is up 2 pounds since 01-16-24 Encounters Encounter Location Date Provider Diagnosis Jason Jenkins MD [address] [place] [address] [address] [place], [place] [phone] 04/29/2024 Jason Jenkins Idiopathic neuropath y G60.9 ; Annual physical exam Z00.00 ; Pre-diabetes R73.03 ; Systemic scleroses M34.9 ; Reflux esophagitis K21.00 ; Depression screening Z13.31 and Acquired hypothyroidism E03.9 Assessments Encounter Date Diagnosis (ICD Code) Assessment Notes Treatment Notes Treatment Clinical Notes Section Notes 04/29/2024 Idiopathic neuropathy (ICD-10 - G60.9) 04/29/2024 Annual physical exam (ICD-10 - Z00.00) labs reviewed and discussed with patient 04/29/2024 Pre-diabetes (ICD-10 - R73.03) has history of elevated blood sugar, stable, will cntinue to monitor, no need for medication at this time 04/29/2024 Systemic scleroses (ICD-10 - M34.9) needs referral to pulmonary at [facility] 04/29/2024 Reflux esophagitis (ICD-10 - K21.00) stable, will continue current regiment 04/29/2024 Depression screening (ICD-10 - Z13.31) negative screen 04/29/2024 Acquired hypothyroidism (ICD-10 - E03.9) stable, will contonue current regiment 04/29/2024 Other eferral to rheumatology Plan Of Treatment Medication Medication Name Sig Start Date Stop Date Notes Levothyroxine Sodium 88 MCG TAKE 1 TABLE T BY MOUTH EVERY DAY IN THE MORNING ON EMPTY STOMACH Omeprazole 20 MG TAKE 1 CAPSULE BY MO UTH EVERY DAY FOR 90 DAYS Treatment Notes Assessment Notes Annual physical exam labs reviewed and d iscussed with patient Pre-diabetes has history of eleva adam blood sugar, stable, will cntinue to monitor, no need for medication at this time Systemic scleroses needs referral to jah adams at [facility] Reflux esophagitis stable, will continu e current regiment Depression screening negative screen Acquired hypothyroidism stable, will con tonue current regiment Referrals Referral Date Details 04/29/2024 04/29/2024, Systemic scleroses, Sybille Liautaud 04/29/2024 04/29/2024, osteopen ia determined by x-ray, JOHN FOWLER Next Appt Details Provider Name:Jason Saravia ier, 04/25/2025 07:45:00 AM, [address], [address], [place], [place], [phone], Provider Name:Jason Saravia ier, 05/02/2025 01:00:00 PM, [address], [address], [place], [place], [phone], Progress Notes * Loni DIAMOND WDOB: 0 (74 yo F)Acc No.[id number]:04/29/2024 Patient: Loni Novak Provider: Inna Jenkins MD :1950 A ge:74 Y S ex:Female Date:04/29/2024 Address:[address] [place], [place] [id number] Subjective: * Chief Complaints: * C OMP EXAM * HPI: D epression Screening: PHQ-9 L ittle interest or pleasure in doing things N ot at all, F eeling down, depressed, or hopeless N ot at all, T rouble falling or staying asleep, or sleeping too much N ot at all, F eeling tired or having little energy N ot at all, P oor appetite or overeating N ot at all, F eeling bad about yourself or that you are a failure, or have let yourself or your family down N ot at all, T rouble concentrating on things, such as reading the newspaper or watching television N ot at all, M oving or speaking so slowly that other people could have noticed; or the opposite, being so fidgety or restless that you have been moving around a lot more than usual N ot at all, T houghts that you would be better off or of hurting yourself in some way N ot at all, T otal Score 0 . I nterpretation and Intervention D epression Screening Findings N egative, F ollow-Up for Depression : review of PHQ-9 found negative result, no follow-up needed. C ommunication Needs: Communication Needs D oes the patient have a hearing impairment N o, D oes the patient have a vision impairment? Y es, I f yes, what is the vision impairment? G lasses, D oes the patient have a cognition impairment? N o. F all Risk: History H ave you had any falls with injury in the past year? N o, H ave you had two or more falls in the past year? N o. S JUDITH Questions: SDOH Questions I n the past year have you been worried about losing housing? N o, I n the past year have you or any family members you live with been unable to get any of the following when it was really needed? Check all that apply: N one. S ymptom(s): patient is a 74 yo female here for yearly evaluation with review of recent labs and follow uppof chronic issues. /rt foot feels tight. at times it was swollen. little in left foot. * ROS: G eneral/Constitutional: Change in appetite d enies. C hills d enies. F ever d enies. O phthalmologic: Blurred vision d enies. D ischarge d enies. P ain d enies. E NT: Decreased hearing d enies. S ore throat d enies.?Swollen glands d enies. E ndocrine: Cold intolerance d enies. E xcessive thirst d enies. H eat intolerance d enies. W eight loss d enies. R espiratory: Cough d enies. S hortness of breath at rest d enies. S hortness of breath with exertion d enies. W heezing d enies. C ardiovascular: Chest pain at rest d enies. C hest pain with exertion?denies. I rregular heartbeat d enies. S hortness of breath d enies. ? G astrointestinal: Abdominal pain d enies. C hange in bowel habits d enies. D iarrhea d enies. N ausea d enies. R ectal bleeding d enies. V omiting d enies . G enitourinary: Blood in urine d enies. D ifficulty urinating d enies. F requent urination d enies. U rinary incontinence D enies. M usculoskeletal: Painful joints d enies. W eakness d enies. ? S kin: Dry skin d enies. I tching d enies. D enies?Mole(s), changes in moles, new moles or any lesions of concern. D enies P hotosensitivity. R xiomara d enies. N eurologic: Dizziness d enies. F ainting d enies. H eadache?denies. * Medical History: * Surgical History: * Hospitalization/Major Diagno stic Procedure: * Family History: F ather: 82 yrs, diagnosed with Cancer. M other: 26 yrs, diagnosed with Cancer. 2 brother(s) , 2 sister(s) . 2 daughter(s) . . 2 adopted daughters Father- Prostate Cancer Mother- Hodgkin's, Denies mental health/substance abuse family history, No pertinent family medical history, Denies mental health/substance abuse family history, Denies mental health/substance abuse family history. * Social History: T obacco Use: T obacco Use/Smoking P atient is a n onsmoker, A dditional Findings: Tobacco Non-User C urrent non-smoker, currently using no form of tobacco. D rugs/Alcohol: A lcohol Screen D id you have a drink containing alcohol in the past year? N o, P oints 0 , I nterpretation N egative. M iscellaneous: C affeine: yes, diet coke one can daily. Children: yes, 2 adopted children. Community involvements: yes. Exercise: yes, walks 5-6 miles a week. Housing: owning. Living with: both children. Marital status: . Occupation: works full-time. Pets: none. no Travel outside of the [place]. * Medications: T akingLevothyroxine Sodium 88 MCG Tablet TAKE 1 TABLET BY MOUTH EVERY DAY IN THE MORNING ON EMPTY STOMACH Omeprazole 20 MG Capsule Delayed Release TAKE 1 CAPSULE BY MOUTH EVERY DAY FOR 90 DAYS Taking Levothyroxine Sodium 88 MCG Tablet TAKE 1 TABLET BY MOUTH EVERY DAY IN THE MORNING ON EMPTY STOMACH Taking Omeprazole 20 MG Capsule Delayed Release TAKE 1 CAPSULE BY MOUTH EVERY DAY FOR 90 DAYS Not- Taking/PRNVitamin D3 25 MCG (1000 UT) Tablet 1 tablet Orally Once a dayVitamin B12 1000 MCG Tablet Extended Release 1 tablet Orally Once a dayProAir RespiClick 108 (90 Base) MCG/ACT Aerosol Powder Breath Activated 1 puff as needed Inhalation every 4 hrsDiprolene AF 0.05 % Cream 1 application to affected area Externally Once a dayMedication List reviewed and reconciled with the patientNot-Taking/PRN Vitamin D3 25 MCG (1000 UT) Tablet 1 tablet Orally Once a dayNot-Taking/PRN Vitamin B12 1000 MCG Tablet Extended Release 1 tablet Orally Once a dayNot-Taking/PRN ProAir RespiClick 108 (90 Base) MCG/ACT Aerosol Powder Breath Activated 1 puff as needed Inhalation every 4 hrsNot-Taking/PRN Diprolene AF 0.05 % Cream 1 application to affected area Externally Once a dayMedication List reviewed and reconciled with the patient * Allergies: N .K.D.A.yes[Allergies Verified] Objective: * Vitals: H t: 66, Wt:193, BMI:31.15, BP:122/58 weight is up 2 pounds since 01-16-24. * P ast Orders: L ab:Lipid Panel (Order Date - 04/22/2024) (Collection Date - 04/22/2024) Value Reference Range Triglycerides 114 <150 - mg/dL Cholesterol 213 H <200 - mg/dL LDL Cholesterol Calculated 134 H <100 - mg/dL HDL Cholesterol 57 >40 - mg/dL L ab:Vitamin D 25-OH Total (Order Date - 04/22/2024) (Collection Date - 04/22/2024) Value Reference Range Vitamin D 25-OH Total 32.4 >30 - ng/mL L ab:UA ClnCatch+Micro w/rflx Cult (Order Date - 04/22/2024) (Collection Date - 04/22/2024) Value Reference Range Color Urine Yellow - Appearance Urine Clear - PH 5.5 5.0-9.0 - Glucose Urine UA Negative Negative - mg/dL Urine Blood Negative Negative - Specific [place] - Urine 1.025 1.005-1.025 - Urine Protein Trace Neg-Trace - mg/dL Urine Ketones Negative Negative - mg/dL Nitrite Urine Negative Negative - Leukocyte Esterase Urine Moderate (2+) A Negative - RBC Urine 0-2 0-2 - /HPF WBC Urine >50 A 0-5 - /HPF Squamous Epithelial Cell Urine 6-10 0-2 - /HPF Bacteria Urine Trace None Seen - Hyaline Casts Urine 0-2 0-2 - /LPF L ab:Urine Culture (Order Date - 04/22/2024) (Collection Date - 04/22/2024) Value Reference Range Urine Culture Susceptibility not routinely performed on this isolate. - O:STRAGA Strep agalactiae (Grp B) - L ab:Complete Blood Count Auto Diff (Order Date - 04/22/2024) (Collection Date - 04/22/2024) Value Reference Range White Blood Count 6.2 4.8-10.8 - X10*3/uL Red Blood Count 4.52 4.20-5.50 - X10*6/uL Hemoglobin 12.3 12.0-16.0 - g/dl Hematocrit 39.5 37.0-47.0 - % Mean Corpuscular Volume 87.4 80.0-98.0 - fL Mean Corpuscular Hemoglobin 27.2 27.0-33.0 - pg Mean Corpuscular HGB Conc 31.1 31.0-35.0 - g/ dl Red Cell Distribution Width 15.4 11.0-16.0 - % Platelet Count 334 160-400 - X10*3/uL Mean Platelet Volume 10.1 9.4-12.3 - fL Neutrophils Percent Auto 48.8 45-73 - % Imm Gran Pct Auto 0.2 0.0-0.4 - % Lymphocytes Percent Auto 39.1 20-40 - % Monocytes Percent Auto 9.4 2-11 - % Eosinophils Percent Auto 1.9 0-4 - % Basophils Percent Auto 0.6 0-2 - % NRBC Pct Auto 0.0 0.0-0.2 - /100WBC Neutrophils Absolute Auto 3.0 2.0-8.3 - x10* 3/uL Imm Gran Abs Auto 0.01 0.00-0.03 - X10*3/uL Lymphocytes Absolute Auto 2.4 1.2-4.9 - X10* 3/uL Monocytes Absolute Auto 0.6 0.1-1.2 - X10*3/ uL Eosinophils Absolute Auto 0.1 0.0-0.4 - X10* 3/uL Basophils Absolute Auto 0.0 0.0-0.2 - X10*3/ uL NRBC Abs Auto 0.000 0.0-0.012 - X10*3/uL L ab:Comprehensive [place]. Panel Fast (Order Date - 04/22/2024) (Collection Date - 04/22/2024) Value Reference Range Sodium 141 135-145 - mmol/L Bilirubin Total 0.4 0.0-1.0 - mg/dL Aspartate Amino Transferase 27 5-31 - U/L Alanine Aminotransferase 8 0-31 - U/L Total Protein 7.1 6.5-8.0 - g/dL Albumin Level 3.5 3.5-5.0 - g/dL Alkaline Phosphatase 86 39-117 - U/L Potassium 4.2 3.3-5.1 - mmol/L Chloride 109 H 96-108 - mmol/L Carbon Dioxide 27 22-29 - mmol/L Anion Gap 9 L 12-20 - Blood Urea Nitrogen 18 H 9-16 - mg/dL Creatinine 0.97 0.5-1.4 - mg/dL Estimated Glomerular Filt Rate 56 - Glucose Fasting 95 60-99 - mg/dL Calcium 9.1 8.4-10.2 - mg/dL * Examination: G eneral Examination: GENERAL APPEARANCE: w ell developed, well nourished, in no acute distress. HEAD: n ormocephalic, atraumatic. EYES: p upils equal, round, reactive to light and accommodation, sclera non-icteric. EARS: n ormal. ORAL CAVITY: m ucosa moist. THROAT: c lear. NECK/THYROID: n jeff supple, full range of motion, no cervical lymphadenopathy, no bruits. SKIN: w arm and dry, no suspicious lesions. HEART: r egular rate and rhythm, S1, S2 normal, no murmurs.? LUNGS: c lear to auscultation bilaterally. BREASTS: d one by snow ranger. ABDOMEN: s oft, nontender, nondistended, bowel sounds present, normal, no organomegaly , no masses palpable. RECTAL EXAM: d one by snow ranger. FEMALE GENITOURINARY: d one by snow ranger. EXTREMITIES: n o clubbing, cyanosis, or edema. NEUROLOGIC: n onfocal, motor strength normal upper and lower extremities, sensory exam intact. Assessment: * Assessment: 1. A nnual physical exam - Z00.00 (Primary) 2 . I diopathic neuropathy - G60.9 3 .?Pre-diabetes - R73.03 4 . 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 R eflux esophagitis - K21.00 6 . D epression screening - Z13.31 7 . A cquired hypothyroidism - E03.9 Plan: * Treatment: 2. P re-diabetes Notes: has history of elevated blood sugar, stable, will cntinue to monitor, no need for medication at this time 3. S ystemic scleroses Notes: needs referral to pulmonary at [facility] ? Referral To:GWEN Dominguez Pulmonary Diseases Reason:Systemic scleroses 4. R eflux esophagitis Continue Omeprazole Capsule Delayed Release, 20 MG, TAKE 1 CAPSULE BY MOUTH EVERY DAY FOR 90 DAYS.? Notes: stable, will continue current regiment 5. D epression screening Notes: negative screen 6. A cquired hypothyroidism Continue Levothyroxine Sodium Tablet, 88 MCG, TAKE 1 TABLET BY MOUTH EVERY DAY IN THE MORNING ON EMPTY STOMACH. Notes: stable, will contonue current regiment 7. O thers Clinical Notes: eferral to rheumatology Referral To:JARED MURO Rheumatology Reason:osteopenia determined by x-ray * Procedure Codes: * * Sign off status: Completed true * Provider: Inna Jenkins MD Date: 0 04/29/2024 Generated for Hesham neff/Jose G/Nitishitting on: 0 12/26/2024 12:00 PM EDT History and Physical Notes * HPI (History of Present Illness) Category Sub-Category Detail Notes Category Not es Symptom(s) patient is a 74 yo female here for yearly evaluation with review of recent labs and follow uppof chronic issues. /rt foot feels tight. at times it was swollen. little in left foot Depression Screening PHQ-9 Little inte rest or pleasure in doing things: Not at all Feeling down, depressed, or hopeless: No t at all Trouble falling or staying asleep, or sl eeping too much: Not at all Feeling tired or having little energy: N ot at all Poor appetite or overeating: Not at all Feeling bad about yourself o r that you are a failure, or have let yourself or your family down: Not at all Trouble concentrating on thi ngs, such as reading the newspaper or watching television: Not at all Moving or speaking so slowly that other people could have noticed; or the opposite, being so fidgety or restless that you have been moving around a lot more than usual: Not at all Thoughts that you would be b subha off or of hurting yourself in some way: Not at all Total Score: 0 Interpretation and Intervention Depression Shashi hemphill Findings: Negative Follow-Up for Depression: : review of PH Q-9 found negative result, no follow-up needed SDOH Questions SDOH Questions In the past year have you been worried about losing housing?: No In the past year have you or any family members you live with been unable to get any of the following when it was really needed? Check all that apply:: None Fall Risk History Have you had any falls with injury i n the past year?: No Have you had two or more falls in the st year?: No Communication Needs Communication Needs Does the patient have a hearing impairment: No Does the patient have a vision impairmen t?: Yes If yes, what is the vision impairment?: Glasses Does the patient have a cognition impair ment?: No Examination Category Sub-Category Detail Notes Category Not es General Examination GENERAL APPEARANCE: well dev eloped, well nourished, in no acute distress HEAD: normocephalic, atrau matic EYES: pupils equal, round, reactive to light and accommodation, sclera non-icteric EARS: normal THROAT: clear NECK/THYROID: neck supple, full ra nge of motion, no cervical lymphadenopathy, no bruits HEART: regular rate and rhy thm, S1, S2 normal, no murmurs LUNGS: clear to auscultatio n bilaterally ABDOMEN: soft, nontender, non distended, bowel sounds present, normal, no organomegaly , no masses palpable NEUROLOGIC: nonfocal, motor stre ngth normal upper and lower extremities, sensory exam intact SKIN: warm and dry, no awilda picious lesions EXTREMITIES: no clubbing, cyanosi s, or edema BREASTS: done by snow ranger RECTAL EXAM: done by snow ranger FEMALE GENITOURINARY: done by snow ranger ORAL CAVITY: mucosa moist Consultation Request Notes Referral Date Referring Provider Referred Provider Not es 04/29/2024 Jason Jenkins, [facility] ic scleroses 04/29/2024 Jason Jenkins SASKIA osteopeni a determined by x-ray
--- OUTSIDE RECORDS SUMMARY | 2024-05-03 06:48 | XMS_ITS ---
Author Organization Jason Jenkins MD Address [address] [place] [phone] Care Team Providers Care Back End Web Developer Name Role Phone Jason Jenkins Primary Care Provider [phone] Fong to call office Encounters Encounter Location Date Provider Diagnosis Jason Jenkins MD [facility] [address] [place] [phone] 05/03/2024 Jason Jenkins Plan Of Treatment Next Appt Details Provider Name:Jason benson, 04/25/2025 07:45:00 AM, [facility], [address] [place] [address], [phone], Provider Name:Jason benson, 05/02/2025 01:00:00 PM, [address] [place] [address], [address] [place] [address], [phone], Progress Notes * Loni DIAMOND WDOB: 0 (74 yo F)Acc No.[id number]:05/03/2024 Patient: Loni Novak :1950 A ge:74 Y S ex:Female Address:[address] [place] [address] * true * Date: Generated for Hesham neff/Jose G/Yvessmitting on: 0 12/26/2024 12:00 PM EDT
--- OUTSIDE RECORDS SUMMARY | 2024-05-14 09:21 | XMS_ITS ---
Author Organization Jason Jenkins MD Address [address] [place] [phone] Care Team Providers Care Battery Checker Name Role Phone Jason Jenkins Primary Care Provider REASON FOR VISIT PFT orders Encounters Encounter Location Date Provider Diagnosis Jason Jenkins MD [facility] [address] [place] [phone] 05/14/2024 Jason Jenkins Systemic scleroses M34.9 Assessments Encounter Date Diagnosis (ICD Code) Assessment Notes Treatment Notes Treatment Clinical Notes Section Notes 05/14/2024 Systemic scleroses (ICD-10 - M34.9) Plan Of Treatment Pending Test Test Name Order Date PFT 05/14/2024 Next Appt Details Provider Name:Jason benson, 04/25/2025 07:45:00 AM, [address] [place] [address], [address], [phone], Provider Name:Jason benson, 05/02/2025 01:00:00 PM, [facility], [address], [phone], Progress Notes * Loni DIAMOND WDOB: 0 (74 yo F)Acc No.[id number]:05/14/2024 Patient: Loni RAMOS :1950 A ge:74 Y S ex:Female Address:[address] [place] [id number] Subjective: * Chief Complaints: * P FT orders * Medical History: * Surgical History: * Hospitalization/Major Diagno stic Procedure: * Medications: Objective: * Vitals: * Physical Examination: Assessment: * Assessment: 1. S ystemic scleroses - M34.9 Plan: * Treatment: * Procedure Codes: * true * Date: Generated for Hesham neff/Jose G/Nakul on: 0 12/26/2024 12:00 PM EDT
--- NOTE | ~2024-12-26 | MM_ITS ---
EXAMINATION: DXA BONE DENSITY AXIAL HISTORY: OSTEOPENIA TECHNIQUE: [employer] Dual energy absorptiometry (DEXA) of the lumbar spine, total left hip, and femoral neck was performed. COMPARISON: Comparison is made with the prior examination dated 10/27/2022. FINDINGS: The bone mineral density of the lumbar spine is 0.984 g/cm2, corresponding to a T-score of -1.6, and a Z-score of -0.8. This is indicative of osteopenia. This represents a BMD change of 8.6% compared to the prior exam. This is statistically significant. The bone mineral density of the left total hip is 1.011 g/cm2, corresponding to a T-score of 0.0, and a Z-score of 1.1. This is indicative of normal bone mineral density. This represents a BMD change of -0.5% compared to the prior exam. This is not statistically significant. The bone mineral density of the left femoral neck is 0.884 g/cm2, corresponding to a T-score of -1.1, and a Z-score of 0.2. This is indicative of osteopenia. This represents a BMD change of -4.4% compared to the prior exam. FRACTURE RISK: The FRAX index suggests a ten year probability of major osteoporotic fracture of 9.5%, and of hip fracture 1.5%. MM/XR DEXA axial skeleton IMPRESSION: Based on bone mineral density, and according to World Health Organization (WHO) criteria, the diagnosis is consistent with osteopenia. Statistically, 68% of repeat scans fall within 1 SD (+/- 0.010 g/cm2 for AP spine L1-L4) and 1 SD (+/- 0.012 g/cm2 for femur total) FRAX is a trademark of the [employer] [place] for Metabolic Bone Disease, a World Health Organization (WHO) Collaborating Center. Electronically signed by: Yan Richter MD 12/26/2024 10:49 AM EDT
--- OUTSIDE RECORDS SUMMARY | 2024-12-26 12:00 | XMS_ITS | Patient Health Record ---
Author Organization [facility] Address [address] [place] [address] Care Team Providers Care Breaker Off Name Role Phone Jason Jenkins MD Primary Care Provider Yan Woodard Unavailable [phone] Allergies No Known Allergies Reason For Referral No Information Medications Medication SIG (Take, Route, Frequency, Duration) Notes Start Date End Date Status PriLOSEC 20 MG 1 capsule Orally Onc e a day PRN Active Levothyroxine Sodium 100 MCG 1 capsule O rally Once a day Active Immunizations Vaccine Route Administration Date Status Comme nts Influenza Unknown 01/16/2020 Administered Problems Problem Type SNOMED Code ICD Code Onset Dates Problem Status W/U Status Risk Notes Problem 927127030 Encounter for screening for malignant neoplasm of colon (Z12.11) Active confirmed Problem 375518522 History of adenomatous polyp of colon (Z86.010) Active confirmed Problem History of polyp of colon (situation) (315570898) Personal history of colonic polyps (Z86.010) Active confirmed Problem Gastroesophageal reflux disease (650559377) Gastroesophageal reflux disease (K21.9) Active confirmed Problem 683155748 Gastroesophageal reflux disease without esophagitis (K21.9) Active confirmed Problem Esophageal stricture (69923083) Esophageal stricture (K22.2) Active confirmed Problem Diverticulosis of colon (957913453) Diverticulosis of colon (K57.30) Active confirmed Problem 439664299 Gastroesophageal reflux disease with esophagitis without hemorrhage (K21.00) Active confirmed Problem 53968987 Esophageal dysphagia (R13.19) Active confirmed Plan Of Treatment Future Test Test Name Order Date COLONOSCOPY 05/27/2015 UPPER GI ENDOSCOPY BALLOOON DILATION OF ESOPH 01/21/2021 COLONOSCOPY 01/21/2021 Insurance Providers Payer Name Payer Address Payer Phone Subscriber Number Group Number Insured Name Patient Relationship to Insured Coverage Start Date Coverage End Date [facility] [address] [place], [place] [id number] PALAK HUNTER Self - patient is the insured Medical (General) History Medical History History ICD Code GERD-reflux esophagitis--upp er endoscopy in 2009 revealed a moderate size hiatal hernia and some erosive esophagitis--biopsies were negative for Carbajal's esophagus Tubular adenomas removed in 2003 and 2009--also noted was some diverticulosis and internal hemorrhoids Scleroderma diagnosed in 1985--Raynaud's Denies [place],DM,CVA,Lung disease,renal dise ase Hypothyroidism Colonoscopy 07/2015 was negative Surgical History Surgery Date(Month/Year) Removal of one ovary---? right [facility] 2018
--- OUTSIDE RECORDS SUMMARY | 2024-12-26 12:00 | XMS_ITS | Patient Health Record ---
Author Organization Jason Jenkins MD Address [address] [place], [place] [id number] Care Team Providers Care Service Vehicle Operator Name Role Phone Jason Jenkins Primary Care Provider [phone] Allergies No Known Allergies Results Component Value Reference Range Notes Complete Blood Count Auto Di ff Reviewed date:04/22/2024 05:46:54 PM Interpretation: Performing Lab:[facility], [address] [place] [phone] Notes/Report: White Blood Count 6.2 4.8-10.8 X10*3/uL [...] 0.0-0.2 /100WBC Neutrophils Absolute Auto 3.0 2.0-8.3 x10*3/uL Imm Gran Abs Auto 0.01 0.00-0.03 X10*3/uL Lymphocytes Absolute Auto 2.4 1.2-4.9 X10*3/uL Monocytes Absolute Auto 0.6 0.1-1.2 X10*3/uL Eosinophils Absolute Auto 0.1 0.0-0.4 X10*3/uL Basophils Absolute Auto 0.0 0.0-0.2 X10*3/uL NRBC Abs Auto 0.000 0.0-0.012 X10*3/uL Comprehensive [place]. Panel Fa st Reviewed date:04/22/2024 05:56:26 PM Interpretation: Performing Lab:[facility], [address] [place] [phone] Notes/Report: Sodium 141 135-145 mmol/L Potassium 4.2 [...] Panel Reviewed date:04/22/2024 05:45:00 PM Interpretation: Performing Lab:[facility], [address] [place] [phone] Notes/Report: Triglycerides 114 <150 mg/dL Desirable Triglyceride: [...] Total Reviewed date:04/22/2024 01:33:15 PM Interpretation: Performing Lab:[facility], [address] [place] [phone] Notes/Report: Vitamin D 25-OH Total 32.4 >30 [...] t Reviewed date:04/22/2024 05:59:18 PM Interpretation: Performing Lab:[facility], [address] [place] [phone] Notes/Report: Urine, Clean Catch Color Urine Yellow Appearance Urine Clear PH 5.5 5.0-9.0 Glucose Urine UA Negative Negative mg/dL Urine Blood Negative Negative Specific [place] - Urine 1.025 1.005-1.025 Urine Protein Trace [...] 11:53:37 AM Interpretation:Negative Performing Lab: Notes/Report: Negative Urine Culture Reviewed date:04/23/2024 12:52:58 PM Interpretation: Performing Lab:[facility], [address] [place] [phone] Notes/Report: O:STRAGA Strep agalactiae (Gr p B) Urine Culture Quant Urine Culture 10,000 to 50,000 cfu/mL Urine Culture Susc N/A Urine Culture Susceptibility not routinely performed on this isolate. XR DEXA axial skeleton Reviewed date:12/26/2024 11:54:25 AM Interpretation: Performing Lab: Notes/Report: [address] [place] [address] Mammography Report Signed Patient: Loni Diamond MR#: [id number] 77 : 1950 Acct:[id number] Age/Sex: 74 / F ADM Date: 12/26/24 Loc: PATRIC Attending Dr: Jason Jenkins MD Ordering Physician: Jason Jenkins MD Results: Date of Service: 12/26/24 Follow Up: Procedure(s): XR DEXA axial skeleton Accession Number(s): [id number] cc: Jason Jenkins MD; CAITLIN GARCIA DO EXAMINATION: DXA BONE DENSITY AXIAL HISTORY: OSTEOPENIA TECHNIQUE: [employer] Dual energy absorptiometry (DEXA) of the lumbar spine, total left hip, and femoral neck was performed. COMPARISON: Comparison is made with the prior examination dated 10/27/2022. FINDINGS: The bone mineral density of the lumbar spine is 0.984 g/cm2, corresponding to a T-score of -1.6, and a Z-score of -0.8. This is indicative of osteopenia. This represents a BMD change of 8.6% compared to the prior exam. This is statistically significant. The bone mineral density of the left total hip is 1.011 g/cm2, corresponding to a T-score of 0.0, and a Z-score of 1.1. This is indicative of normal bone mineral density. This represents a BMD change of -0.5% compared to the prior exam. This is not statistically significant. The bone mineral density of the left femoral neck is 0.884 g/cm2, corresponding to a T-score of -1.1, and a Z-score of 0.2. This is indicative of osteopenia. This represents a BMD change of -4.4% compared to the prior exam. FRACTURE RISK: The FRAX index suggests a ten year probability of major osteoporotic fracture of 9.5%, and of hip fracture 1.5%. MM/XR DEXA axial skeleton IMPRESSION: Based on bone mineral density, and according to World Health Organization (WHO) criteria, the diagnosis is consistent with osteopenia. Statistically, 68% of repeat scans fall within 1 SD (+/- 0.010 g/cm2 for AP spine L1-L4) and 1 SD (+/- 0.012 g/cm2 for femur total) FRAX is a trademark of the [employer]'s [place] for Metabolic Bone Disease, a World Health Organization (WHO) Collaborating Center. Electronically signed by: Yan Richter MD 12/26/2024 10:49 AM EDT Dictated By: Yan Richter MD Signed By: <Electronically signed by Yan Richter MD in OV> 12/26/24 1049 DD/ 1026 TD/TT: 12/26/24 1030 Health Advisor: [facility] [address] [place] [address] Mammography Report Signed Patient: Harsh Diamond MR#: [id number] 77 : 1950 Acct:[id number] Age/Sex: 74 / F ADM Date: 12/26/24 Loc: PATRIC Attending Dr: Jason Jenkins MD Ordering Physician: Jasno Jenkins MD Results: Date of Service: 12/26/24 Follow Up: Procedure(s): XR DEX A axial skeleton Accession Number(s): [id number] cc: Jason Jenkins MD; CAITLIN GARCIA DO EXAMINATION: DXA BON E DENSITY AXIAL HISTORY: OSTEOPENIA TECHNIQUE: [employer] Dual energy absorptiometry (DEXA) of the lumbar spine, total left hip, and femoral neck was performed. COMPARISON: Comparis on is made with the prior examination dated 10/27/2022. FINDINGS: The bone mineral density of the lumbar spine is 0.984 g/cm2, corresponding to a T-score of -1.6, and a Z-score of -0.8. This is indicative of osteopenia. This represents a BM D change of 8.6% compared to the prior exam. This is statistically significant. The bone mineral density of the left total hip is 1.011 g/cm2, corresponding to a T-score of 0.0, and a Z-score of 1.1. This is indicative of normal bone mineral density. This represents a BM D change of -0.5% compared to the prior exam. This is not statistically significant. The bone mineral density of the left femoral neck is 0.884 g/cm2, corresponding to a T-score of -1.1, and a Z-score of 0.2. This is indicative of osteopenia. This represents a BM D change of -4.4% compared to the prior exam. FRACTURE RISK: The FRAX index suggests a ten year probability of major osteoporotic fracture of 9.5%, an d of hip fracture 1.5%. __ MM/XR DEXA axial skeleton IMPRESSION: Based on bone minera l density, and according to World Health Organization (WHO) criteria, the diagnosis is consistent with osteopenia. Statistically, 68% o f repeat scans fall within 1 SD (+/- 0.010 g/cm2 for AP spine L1-L4) and 1 SD (+/- 0.012 g/cm2 for femur total) FRAX is a trademark of the [employer] [place] for Metabolic Bone Disease, a World Health Organization (WHO) Collaborating Center. Electronically yue d by: Yan Richter MD 12/26/2024 10:49 AM EDT RP Dictated By: Yan Richter MD Signed By: <Electronically signed by Yan Richter MD in OV> 12/26/24 1049 DD/ 1026 TD/TT: 12/26/24 1030 Health Advisor: Reason For Referral Reason Systemic scleroses Diagnosis 1 Systemic scleroses ( M34.9) Referral Organization Jason Jenkins MD Referring Provider First Name Jason Referring Provider Last Name Alice Referring Provider Speciality Internal M edicine Referred Provider Kimberlee Rodriguez Referred Provider Specialty Pulmonary Di [facility] General Notes Lindsey Scott 0 05/14/2024 01:00:59 PM > per [facility] pulmonary office, patient must have a PFT test done. Left patient a voice message regarding test being booked., [facility] Lindsey Scott 05/30/2024 12:00:11 PM > spoke with patient [...] at 3:20pm With Dr. Kimberlee Rodriguez [address] [facility] , [address] floor [address], Lindsey Scott [...] 12:16:18 PM > appt is booked to [facility] at 3:40pm, Lindsey Scott 06/04/2024 11:10:12 AM > referral info mailed to patient Referral Priority Routine Referral Appointment Date 11/20/2024 Medications Medication SIG (Take, Route, Frequency, Duration) Notes Start Date End Date Status Vitamin D3 25 MCG (1000 UT) 1 tablet Orally Once a day 04/19/2021 Not-Taking Vitamin B12 1000 MCG 1 tablet Orally Onc e a day for 30 day(s) Not-Taking Omeprazole 20 MG TAKE 1 CAPSULE BY PA UTH EVERY DAY FOR 90 DAYS Active ProAir RespiClick 108 (90 Base) MCG/ACT 1 puff as needed Inhalation every 4 hrs 01/04/2016 Not-Takin g Diprolene AF 0.05 % 1 application to affected area Externally Once a day for 30 days 05/31/2012 Not-Taking Levothyroxine Sodium 88 MCG TAKE 1 TABLET BY MOUTH EVERY DAY IN THE MORNING ON EMPTY STOMACH for 90 Active Immunizations Vaccine Route Administration Date Status [...] High Dose IM Intramuscular 02/08/2024 Administer ed Social History Tobacco Use: Social History Observation [...] ast year? No Points 0 Interpretation Negative Problems Problem Type SNOMED Code ICD Code Onset Dates Problem Status W/U Status Risk Notes Problem 654017773 Reflux esophagit is (K21.00) Active confirmed Problem Vitamin D deficiency (93922583) Vitamin D deficiency (E55.9) Active confirmed Problem 841644901 Acquired hypothyroidism (E03.9) Active confirmed Problem 256460169 Non morbid obesi ty due to excess calories (E66.09) Active confirmed Problem 074103368 History of colon ic polyps (Z86.010) Active confirmed Problem Scleroderma (314320259) Scleroderma (M34.9) Active confirmed Problem 08964217 Systemic scleros es (M34.9) Active confirmed Problem 691675572 Body mass index (BMI) of 33.0-33.9 in adult (Z68.33) Active confirmed Problem 838500311 Osteopenia determined by x-ray (M85.80) Active confirmed Vital Signs Blood pressure diastolic 58 mm Hg 04/29/2024 thai ght is up 2 pounds since 01-16-24 Height 66 in 04/29/2024 weight is up 2 pounds since 01-16-24 Blood pressure systolic 122 mm Hg 04/29/2024 weig ht is up 2 pounds since 01-16-24 Weight 193 lbs 04/29/2024 weight is up 2 pounds since 01-16-24 BMI 31.15 kg/m2 04/29/2024 weight is up 2 pounds since 01-16-24 Encounters Encounter Location Date Provider Diagnosis Jason Jenkins MD [address] [place] [id number] 04/22/2024 Jason Jenkins Blood tests for routine general physical examination Z00.00 ; Acquired hypothyroidism E03.9 and Vitamin D deficiency E55.9 Jason Jenkins MD [address] [place] [id number] 01/16/2024 Jason Jenkins COVID-19 U07.1 and Dysfunction of left eustachian tube H69.92 Jason Jenkins MD [address] [place] [id number] 02/08/2024 Jason Jenkins Encounter for administration of vaccine Z23 Jason Jenkins MD [address] [place] [address] [id number] 04/29/2024 Jason Jenkins Idiopathic neuropath y G60.9 ; Annual physical exam Z00.00 ; Pre-diabetes R73.03 ; Systemic scleroses M34.9 ; Reflux esophagitis K21.00 ; Depression screening Z13.31 and Acquired hypothyroidism E03.9 Jason Jenkins MD [address] [place] [address] Drive [address] [place] [id number] 05/03/2024 Jason Jenkins MD [address] [place] [address] [id number] 05/14/2024 Jason Jenkins Systemic scleroses M34.9 Assessments Encounter Date Diagnosis (ICD Code) Assessment Notes Treatment Notes Treatment Clinical Notes Section Notes 04/22/2024 Blood tests for routine general physical examination (ICD-10 - Z00.00) 04/22/2024 Acquired hypothyroidism (ICD-10 - E03.9) 01/16/2024 COVID-19 (ICD-10 - U07.1) 01/16/2024 Dysfunction of left eustachian tube (ICD-10 - H69.92) patient verbalized understanding of medication and directions for use. 02/08/2024 Encounter for administration of vaccine (ICD-10 - Z23) 04/29/2024 Idiopathic neuropathy (ICD-10 - G60.9) 04/29/2024 Annual physical exam (ICD-10 - Z00.00) labs reviewed and discussed with patient 05/14/2024 Systemic scleroses (ICD-10 - M34.9) 04/22/2024 Vitamin D deficiency (ICD-10 - E55.9) 04/29/2024 Pre-diabetes (ICD-10 - R73.03) has history of elevated blood sugar, stable, will cntinue to monitor, no need for medication at this time 04/29/2024 Systemic scleroses (ICD-10 - M34.9) needs referral to pulmonary at [facility] 04/29/2024 Reflux esophagitis (ICD-10 - K21.00) stable, will continue current regiment 04/29/2024 Depression screening (ICD-10 - Z13.31) negative screen 04/29/2024 Acquired hypothyroidism (ICD-10 - E03.9) stable, will contonue current regiment 04/29/2024 Other eferral to rheumatology Plan Of Treatment Pending Test Test Name Order Date Electrocardiogram (EKG) 02/23/2017 MAMMOGRAM DIGITAL BILATERAL SCREEN 03/19 US LEG LT VENOUS DOPPLER 11/01/2021 PFT 05/14/2024 PFT 02/22/2016 MM tomosynthesis screening BI 09/22/2020 XR DEXA axial skeleton 09/22/2020 XR DEXA axial skeleton 11/17/2020 Future Test Test Name Order Date BONE DENSITY DEXA 10/03/2019 Next Appt Details Provider Name:Jason benson, 04/25/2025 07:45:00 AM, [address] [place] [address], [address], [phone], Provider Name:Jason benson, 05/02/2025 01:00:00 PM, [address] [place] [address], [address], [phone], Insurance Providers Payer Name Payer Address Payer Phone Subscriber Number Group Number Insured Name Patient Relationship to Insured Coverage Start Date Coverage End Date [employer] [address] [place], [place] [id number] Loni Diamond Self - patient is the insured Medical (General) History Medical History History ICD Code colonoscopy 2009 due in 5 ye ars; colonoscopy 08/14/15 w/Dr. Nielson - repeat 5 years: colonoscopy 03/07, repeat 5 years ( 2025) UIP IS USUAL INTERSTITIAL PNEUMONIA
--- OUTSIDE RECORDS SUMMARY | 2024-12-26 12:01 | XMS_ITS | Patient Health Record ---
Author Organization [facility] [place] Address [address] [place] [place] [address] Care Team Providers Care Vacuum Kettle Cook Name Role Phone Jason Jenkins MD Primary Care Provider Wyatt Concepcion Unavailable [phone] Reason For Referral No Information Medications Medication SIG (Take, Route, Frequency, Duration) Notes Start Date End Date Status Levothyroxine Sodium 125 MCG 1 tablet on an empty stomach in the morning Orally Once a day Active Plan Of Treatment Pending Test Test Name Order Date [id number] NAIL, 1-08/13/2013 [id number] NAIL, -11/08/2013 Insurance Providers Payer Name Payer Address Payer Phone Subscriber Number Group Number Insured Name Patient Relationship to Insured Coverage Start Date Coverage End Date [facility] [address] [place] [address] [id number] LoboLoni Self - patient is the insured Medical (General) History Medical History History ICD Code Back,Hip,and Knee pain Chicken pox Measles Raynauds syndrome Reflux Thyroid disorder Surgical History Surgery Date(Month/Year) oophorectomy 1991
== END 2024-12-26 10:00 | disposition home or self-care (01) ==
LOC: HO.MAMMO 09:59
PROVIDERS: PCP Internal Medicine; Visit Provider Internal Medicine
DX: Z13.820 Encounter for screening for osteoporosis (principal); M85.88 Other specified disorders of bone density and structure, other site
CPT/HCPCS: 77080

== ENCOUNTER → 2024-12-26 10:00 | Outpatient (BNV) | payer MEDICARE, SELFPAY | PROVIDERS: PCP Internal Medicine; Visit Provider Radiology Diagnostic Radiology | DX: E28.39 Other primary ovarian failure (principal) | CPT/HCPCS: 77080 ==